=== PATIENT | female | born 1985 | race African-American/Black ===

== ENCOUNTER 2023-05-04 22:44 | Inpatient (IN) | payer OTHER, BC, SELFPAY ==
--- NOTE | ~2023-05-04 | XR_ITS ---
Clinical Indication: Fever PA and lateral views of the chest: Comparison: None Findings: The lungs are clear, without evidence of focal consolidation or pleural effusion. Cardiome diastinal silhouette is within normal limits. Bones and soft tissues are unremarkable. Impression: Normal chest. Reviewed, dictated and finalized at location . HOUSE ATTENDANT Impression: Normal chest.
--- NOTE | ~2023-05-04 | CT_ITS ---
CT of the Abdomen and Pelvis: Indication: Sepsis Technique: 2.5 mm axial scans were obtained through the abdomen and pelvis following intravenous adm inistration of 100 cc of Omnipaque 350. Dose reduction technique was used on this scan by utilizing a utomated exposure control and iterative reconstruction technique. The dose-length product (DLP) was 3 48.05 mGy-cm. Findings: Scans through the lung bases are unremarkable. The liver, spleen, pancreas, and adrenal glands are within normal limits. Probable gallstones present . There is patchy decreased enhancement in the bilateral renal parenchyma, consistent with pyelonephr itis. No hydronephrosis. Left renal cyst present. No evidence of aortic aneurysm. No lymphadenopathy . No bowel obstruction or bowel wall thickening. There is no evidence to suggest acute appendicitis. Images through the pelvis were performed. Urinary bladder unremarkable. No adnexal mass seen. No asci nino. Impression: Bilateral pyelonephritis. Reviewed, dictated and finalized at [facility]. GRAPHER AGENT Impression: Bilateral pyelonephritis.
[2023-05-04 22:47] VITALS: BP 134/72; PULSE 127; RESP 15; TEMP 38.6; O2SAT 100
[2023-05-05] VITALS (14 sets, daily range): BP systolic 91–123; BP diastolic 53–74; PULSE 93–123; RESP 14–22; TEMP 36.4–39.4; O2SAT 97–100; BMI 29.6
[2023-05-05 03:32] LABS: Basophils Absolute Auto 0.1 K/mm3 (0.0-0.1); Basophils Percent Auto 0.3 % (0.2-1.2); Eosinophils Absolute Auto 0.1 K/mm3 (0-0.3); Eosinophils Percent Auto 0.2 % (0-4.4); Hematocrit 39.1 % (37.0-47.0); Hemoglobin 13.6 g/dL (12.0-15.0); Immature Granulocyte Absolute 0.35 K/mm3 (0.00-0.031); Immature Granulocyte Percent A 1.7 % (0-0.5); Lymphocytes Absolute Auto 1.13 K/mm3 (0.9-3.2); Lymphocytes Percent Auto 5.3 % (18.3-44.2); Mean Corpuscular HGB Conc 34.8 g/dl (32-36); Mean Corpuscular Hemoglobin 32.3 pg (26-34); Mean Corpuscular Volume 92.9 fl (80-100); Mean Platelet Volume 9.7 fl (7.4-10.4); Monocytes Percent Auto 14.3 % (2.6-8.5); Neutrophils Absolute Auto 16.5 K/mm3 (1.3-6.7); Neutrophils Percent Auto 78.2 % (45.5-73.1); Platelet Count Result 258 k/mm3 (150-375); Red Blood Count 4.21 M/mm3 (4.2-5.4); Red Cell Distribution Width 11.4 % (11.5-14.5); White Blood Count 21.1 K/mm3 (4.5-10.0)
[2023-05-05] MEDS: HYDROcodone/acetaminophen (*CRX) 5-325 MG TABLET 1 TAB PO ×3 (03:37→20:46)
[2023-05-05] MEDS: ONDANSETRON INJ 4 MG/2 ML VIAL IV PUSH ×3 (03:37→17:28)
--- NOTE | 2023-05-05 03:39 | ED.FEVER ---
HPI - Fever General Chief Complaint: Fever <Jayleen Gibson MD - Last Filed: 05/05/23 06:32> Stated Complaint: fever <Jayleen Gibson MD - Last Filed: 05/05/23 06:32> Time Seen by Provider: 05/05/23 03:12 <Jayleen Gibson MD - Last Filed: 05/05/23 06:32> History of Present Illness HPI Narrative: Patient presents to the emergency department with persistent fever. She has had dysuria for the past 2 days. Yesterday developed a fever was seen at urgent care and given Bactrim however she continues to feel sick. Also has bilateral abdominal pain and nausea. Chills and hot flashes <Jayleen Gibson MD - Last Filed: 05/05/23 06:32> Related Data Allergies/Adverse Reactions: Allergies Allergy/AdvReac Type Severity Reaction Status Date / Time No Known Allergies Allergy Verified 05/05/23 02:50 <Jayleen Gibson MD - Last Filed: 05/05/23 06:32> Review of Systems Review of Systems: Review of systems negative except what is documented in the HPI <Jayleen Gibson MD - Last Filed: 05/05/23 06:32> Exam Narrative: GENERAL: Well-appearing, well-nourished, and in no acute distress. HEAD: Normocephalic, atraumatic. EYES: PERRLA and EOMI. ENT: Nares clear, no rhinorrhea or epistaxis. Mucous membranes moist. NECK: Supple. CHEST: Clear to auscultation. No respiratory distress. HEART: tachycardia ABDOMEN: Soft, nontender, nondistended. EXTREMITIES: Normal range of motion. No edema. SKIN: Warm, dry, no rash. NEURO: No focal deficits. Alert and oriented x3. PSYCH: Normal mood and affect. <Jayleen Gibson MD - Last Filed: 05/05/23 06:32> Course Course Emergency Course: Patient with bilateral pyelonephritis. Patient has been accepted by the hospitalist service. She is aware of the diagnosis and treatment plan. Ceftriaxone started. <Lázrao Bolden MD - Last Filed: 05/05/23 08:44> Vital Signs Vital signs: Vital Signs Temperature 101.4 F H 05/04/23 22:47 Pulse Rate 127 H 05/04/23 22:47 Respiratory Rate 15 05/04/23 22:47 Blood Pressure 134/72 05/04/23 22:47 Pulse Oximetry 100 05/04/23 22:47 Oxygen Delivery Room Air 05/04/23 22:47 Temperature 101.4 F H 05/04/23 22:47 Pulse Rate 111 H 05/05/23 05:27 Respiratory Rate 18 05/05/23 05:27 Blood Pressure 91/57 L 05/05/23 05:27 Pulse Oximetry 99 05/05/23 05:27 Oxygen Delivery Room Air 05/04/23 22:47 <Jayleen Gibson MD - Last Filed: 05/05/23 06:32> Vital Signs Temperature 101.4 F H 05/04/23 22:47 Pulse Rate 127 H 05/04/23 22:47 Respiratory Rate 15 05/04/23 22:47 Blood Pressure 134/72 05/04/23 22:47 Pulse Oximetry 100 05/04/23 22:47 Oxygen Delivery Room Air 05/04/23 22:47 Temperature 101.4 F H 05/04/23 22:47 Pulse Rate 111 H 05/05/23 05:27 Respiratory Rate 18 05/05/23 05:27 Blood Pressure 91/57 L 05/05/23 05:27 Pulse Oximetry 99 05/05/23 05:27 Oxygen Delivery Room Air 05/04/23 22:47 <Lázaro Bolden MD - Last Filed: 05/05/23 08:44> MDM - Fever MDM Narrative Medical decision making narrative: Labs ordered. White blood cell count elevated. Lactate normal bilirubin also elevated as well as inflammatory markers. Patient's blood pressure is 91/57 she is still tachycardic. Patient is septic. CT scan result pending. Will plan to admit to the hospital with blood cultures pending and IV antibiotics <Jayleen Gibson MD - Last Filed: 05/05/23 06:32> Lab Data Result diagrams: 05/05/23 03:14 05/05/23 03:14 <Jayleen Gibson MD - Last Filed: 05/05/23 06:32> Labs: Lab Results 05/05/23 Range/Units 03:14 WBC 21.1 H (4.5-10.0) K/mm3 RBC 4.21 (4.2-5.4) M/mm3 Hgb 13.6 (12.0-15.0) g/dL Hct 39.1 (37.0-47.0) % MCV 92.9 (80-100) fl MCH 32.3 (26-34) pg MCHC 34.8 (32-36) g/dl RDW 11.4 L (11.5-14.5) % Plt Count 258 (150-375) k/
[2023-05-05 03:47] LABS: Lactic Acid Reflex 1.7 mmol/L (0.7-2.0)
[2023-05-05 04:05] LABS: Alanine Aminotransferase 26 U/L (6-35); Albumin Level 4.4 g/dL (3.5-5.1); Alkaline Phosphatase 114 U/L (38-126); Anion Gap 13 mmol/L (8-16); Aspartate Amino Transferase 32 U/L (14-36); Bilirubin,Total 1.9 mg/dL (0.2-1.3); Blood Urea Nitrogen 13 mg/dL (7-17); CRP 21.3 mg/dL (<1.0); Calcium 9.1 mg/dL (8.4-10.2); Carbon Dioxide 24 mmol/L (22-30); Chloride 98 mmol/L (98-107); Estimated Glomerular Filt Rate > 60; Glucose 112 mg/dL (65-110); Potassium 3.5 mmol/L (3.4-5.0); Sodium 135 mmol/L (137-145)
[2023-05-05 04:07] LABS: Appearance Urine Turbid (Clear); Bacteria Urine 4+ /hpf; Bilirubin Urine Negative (Negative); Blood Urine 3+ (Negative); Color Urine Dark Yellow (Yellow); Glucose Urine UA Negative (Negative); Ketones Urine 2+ mg/dL (Negative); Leukocyte Esterase Ur 3+ LEU/UL (Negative); Need Manual Microscopic Reviewed; Nitrate Urine Positive (Negative); Protein Urine 2+ mg/dL (Negative); RBC Urine 21-50 /hpf (0-2); Specific Grav Ur 1.013 (1.001-1.035); Squamous Epithelial Cell Urine Moderate /hpf (Few); WBC Urine >100 /hpf; pH Urine 6.5 (5.0-9.0)
[2023-05-05 04:09] LABS: Add Urine Microscopic? YES
[2023-05-05] MEDS: MORPHINE SULFATE (*CRX) 2 MG/ML INJ IV PUSH (04:29)
--- NOTE | 2023-05-05 07:45 | PC.NURSE ---
Pt IV infiltrated in CT. attempted IV access x2 with no success.
[2023-05-05] MEDS: SODIUM CHLORIDE 0.9% IV 1,000 ML 125 ML IV CONT ×2 (08:55→17:29)
[2023-05-05] MEDS: ACETAMINOPHEN 325 MG TABLET 650 MG PO (09:10)
--- NOTE | 2023-05-05 09:47 | ADMGEN ---
This patient, Rosina Aguirre, was admitted to Medical Room 252-01. Patient/family oriented to hospital policies and general routines including ID bracelet, bed and alarms, visiting hours, pain management, procedures, bathroom and other care routines, personal items, smoking policy, room service/diet, and visiting hours. Information on how to activate the Rapid Response Team has been discussed. Patient/Family are encouraged to report perceived risks to care and to ask questions if they do not understand what they are told or what they should do.
[2023-05-05] MEDS: HYDROmorphone HCL INJ (*CRX) 1 MG/ML SYR IV PUSH (09:55)
--- NOTE | 2023-05-05 17:24 | PM.IMHP ---
H&P: HPI History of Present Illness Date/Time: 05/05/23 17:24 Chief Complaint: N/V, Fever, Dysuria Narrative: 37 y/o F presents here with fever, N/V, and dysuria with no PMH. Patient reports that she developed symptoms last Wednesday or Wednesday. Initially had dysuria accompanied by discoloration of urine described as orange. On Wednesday she reports increasing urinary frequency and when she would urinate, it was of small volume. Reports that her urine became further discolored on Wednesday, described urine as tea colored. Currently experiencing mid abdominal pain, midline and bilateral, that worsens with deep inspiration. She describes the abdominal pain as full and pinching. +Fever, nausea, vomiting, chills, and body aches. Denies diarrhea, hematuria, or odor. Current fever of 103F. Review of Systems Review of Systems: All systems reviewed & are unremarkable except as noted in HPI and below PMFSH Surgical History Surgical History History of x2: '05 and 06 Social History Social History (Updated 05/06/23 @ 01:46 by Mary Castro APRN) Social History: Currently lives alone. Her 2 children live with her father. Surrogate decision maker: Rachel Nobles, mother. Code status: Full code. Smoking status: Never smoker Alcohol intake: never Substance use: never Lack of Transportation: No Lack of Food: Never True Current Housing: I Have Housing Concerned About Future Housing: No Difficulty Paying Gas/Electric Bills: No Difficulty Paying for Meds: No Currently Unemployed: No Education: High School Diploma/GED Difficulty w/ Childcare or Family Care: No Spiritual care concerns: No Meds Home Medications and Allergies Allergies Allergy/AdvReac Type Severity Reaction Status Date / Time No Known Allergies Allergy Verified 05/05/23 02:50 Vital Signs Vital Signs - 24 hr 05/04/23 22:47 05/05/23 02:48 05/05/23 03:38 Temperature 101.4 F H Pulse Rate 127 H 110 H 119 H Respiratory Rate 15 18 18 Blood Pressure 134/72 110/74 99/61 L Pulse Oximetry 100 100 100 Oxygen Delivery Room Air 05/05/23 05:27 05/05/23 09:04 05/05/23 10:03 Temperature 100.5 F H 101.1 F H Pulse Rate 111 H 116 H 123 H Respiratory Rate 18 20 16 Blood Pressure 91/57 L 108/63 106/53 L Pulse Oximetry 99 98 100 Oxygen Delivery 05/05/23 10:33 05/05/23 09:50 05/05/23 13:59 Temperature 101.1 F H 97.6 F Pulse Rate 123 H 98 Respiratory Rate 16 14 Blood Pressure 106/53 L 123/68 Pulse Oximetry 100 99 Oxygen Delivery Room Air 05/05/23 14:00 05/05/23 12:00 Temperature 97.6 F Pulse Rate 98 101 H Respiratory Rate 14 Blood Pressure 123/68 Pulse Oximetry 99 Oxygen Delivery Exam Narrative: Resting in hospital bed, no visitors at bedside. Const: General: no acute distress and uncomfortable Other: Ill-appearing. HENMT: Face/Nose/Sinus: Normal nares present Mouth: Yes dry mucous membranes Eyes: General: appearance normal, both eyes and all related structures Sclera: sclerae normal Pupils: Equal, round and reactive pupils present Resp: Effort & Inspection: normal respiratory effort Auscultation: clear to auscultation bilaterally Cardio: Rate: tachycardic Rhythm: regular rhythm Other: S1-S2 present without murmur, rub, ectopy GI: GI Palp: Yes Soft to palpation Auscultation: normal bowel sounds Other: +Diffuse tenderness. : Other: no suprapubic tenderness or CVA tenderness. output tea colored. Skin: General skin exam: normal color and no rashes or lesions noted Wounds: no wounds Neuro: Speech: normal speech Motor exam (neuro): 5/5 motor strength present throughout Sensory Exam: normal sensation Other: A/Ox4 Extrem: General: normal to inspection Psych: Mental Status: mental status grossly normal Affect: normal affect Other: Go
[2023-05-05] MEDS: ACETAMINOPHEN 500 MG TABLET 1000 MG PO (18:01)
[2023-05-06] VITALS (17 sets, daily range): BP systolic 102–129; BP diastolic 62–79; PULSE 80–101; RESP 16–20; TEMP 36.8–37.9; O2SAT 99–100
[2023-05-06] MEDS: ACETAMINOPHEN 500 MG TABLET 1000 MG PO ×2 (00:59→08:44)
[2023-05-06] MEDS: SODIUM CHLORIDE 0.9% IV 1,000 ML 125 ML IV CONT ×3 (03:34→19:51)
[2023-05-06] MEDS: ALPRAZolam (*CRX) 0.25 MG TABLET PO (03:34)
[2023-05-06 05:56] LABS: Basophils Percent Auto 0.3 % (0.2-1.2); Eosinophils Percent Auto 0.2 % (0-4.4); Hematocrit 33.2 % (37.0-47.0); Hemoglobin 11.2 g/dL (12.0-15.0); Immature Granulocyte Absolute 0.14 K/mm3 (0.00-0.031); Immature Granulocyte Percent A 1.1 % (0-0.5); Lymphocytes Absolute Auto 0.99 K/mm3 (0.9-3.2); Lymphocytes Percent Auto 7.6 % (18.3-44.2); Mean Corpuscular HGB Conc 33.7 g/dl (32-36); Mean Corpuscular Volume 94.9 fl (80-100); Mean Platelet Volume 9.8 fl (7.4-10.4); Monocytes Absolute Auto 1.7 K/mm3 (0.1-0.6); Monocytes Percent Auto 13.1 % (2.6-8.5); Neutrophils Absolute Auto 10.1 K/mm3 (1.3-6.7); Neutrophils Percent Auto 77.7 % (45.5-73.1); Platelet Count Result 216 k/mm3 (150-375); Red Cell Distribution Width 11.5 % (11.5-14.5)
[2023-05-06 06:15] LABS: Anion Gap 8 mmol/L (8-16); Blood Urea Nitrogen 6 mg/dL (7-17); Calcium 8.2 mg/dL (8.4-10.2); Carbon Dioxide 23 mmol/L (22-30); Chloride 106 mmol/L (98-107); Estimated Glomerular Filt Rate > 60; Glucose 119 mg/dL (65-110); Potassium 3.2 mmol/L (3.4-5.0); Sodium 137 mmol/L (137-145)
[2023-05-06] MEDS: ONDANSETRON INJ 4 MG/2 ML VIAL IV PUSH ×3 (08:47→23:47)
[2023-05-06] MEDS: HYDROmorphone HCL INJ (*CRX) 1 MG/ML SYR IV PUSH (08:48)
--- NOTE | 2023-05-06 09:06 | ECG_ITS ---
Measurements Intervals [place] Rate: 102 P: 53 VT: 139 QRS: 23 QRSD: 89 T: 14 QT: 333 QTc: 435 Interpretive Statements SINUS TACHYCARDIA BORDERLINE T WAVE ABNORMALITY- INFERIOR LEADS BORDERLINE ECG NO PREVIOUS ECG AVAILABLE FOR COMPARISON Electronically Signed On 05-06-2023 9:50:29 [employer] by Luís Hewitt D.O.
--- NOTE | 2023-05-06 09:09 | PM.IMPN ---
Progress Note: A&P Assessment and Plan (1) Sepsis: Qualifiers: Sepsis acute organ dysfunction status: with acute organ dysfunction Sepsis type: sepsis due to unspecified organism Severe sepsis acute organ dysfunction type: unspecified Severe sepsis shock status: without septic shock Qualified Code(s): A41.9 - Sepsis, unspecified organism; R65.20 - Severe sepsis without septic shock Code(s): A41.9 - Sepsis, unspecified organism Status: Acute (2) Pyelonephritis: Code(s): N12 - Tubulo-interstitial nephritis, not specified as acute or chronic Status: Acute Plan 37F w/ no PMH presents with n/v, abdominal pain and dysuria. Admitted for b/l pyelonephritis on 05/06 1) b/l pyelonephritis w/ sepsis w/o shock - presented with fever of 101.4, lower now. received sepsis fluid bolus. - wbc 21 --> 17. ctm - cont tele, IVF - f/u urine and blood cultures - cont ceftriaxone started 05/05 2) chest pain - reported anxiety overnight relieved with benzo - sharp in nature. CXR unremarkable. check stat troponin and EKG, will follow FEN: IVF GI prophylaxis: not indicated DVT prophylaxis: SCD's. consider heparin tomorrow if not much better Lines: pIV Code Status: Full Code Dispo: stable. More than 35 minutes spent on chart review, patient interaction and assessment and plan. Subjective Date/time seen: 05/06/23 09:09 Interval history: pt reports she complains of sharp chest pain which subsided overnight but it is back, severe, midsternal, and worse when she breaths in, and causes her to vomit. nursing reports she was anxious, and a one time dose of benzo greatly relieved it. the patient otherwise complains of feeling feverish. reports lower abdominal pain. no issues breathing Review of Systems Review of Systems: All systems reviewed & are unremarkable except as noted in HPI and below Exam Const: General: comfortable and no acute distress Eyes: Pupils: Equal, round and reactive pupils present Neck: Neck: supple Resp: Effort & Inspection: normal respiratory effort Auscultation: clear to auscultation bilaterally and no crackles Cardio: Rate: regular rate Rhythm: regular rhythm Heart sounds: no gallops, no murmurs and no rubs GI: Inspection: non-distended GI Palp: Yes Soft to palpation and Yes Tenderness to palpation present (GI) Auscultation: normal bowel sounds Other: no CVA tenderness Extrem: General: no edema Objective Data Vital Signs Vital Signs: Vital Signs - 24 hr 05/05/23 10:03 05/05/23 10:33 05/05/23 09:50 Temperature 101.1 F H 101.1 F H Pulse Rate 123 H 123 H Respiratory Rate 16 16 Blood Pressure 106/53 L 106/53 L Pulse Oximetry 100 100 Oxygen Delivery Room Air 05/05/23 13:59 05/05/23 14:00 05/05/23 12:00 Temperature 97.6 F 97.6 F Pulse Rate 98 98 101 H Respiratory Rate 14 14 Blood Pressure 123/68 123/68 Pulse Oximetry 99 99 Oxygen Delivery 05/05/23 17:30 05/05/23 16:00 05/05/23 19:44 Temperature 102.9 F H Pulse Rate 102 H Respiratory Rate 22 H Blood Pressure 118/74 Pulse Oximetry 100 Oxygen Delivery Room Air 05/05/23 20:34 05/05/23 19:01 05/06/23 00:29 Temperature 98.8 F 98.7 F 99.0 F Pulse Rate 93 Respiratory Rate 16 Blood Pressure 105/64 Pulse Oximetry 97 Oxygen Delivery 05/06/23 00:59 05/06/23 02:00 05/06/23 04:21 Temperature 99.0 F 100.1 F H 98.6 F Pulse Rate 100 100 Respiratory Rate 16 16 Blood Pressure 105/62 102/62 Pulse Oximetry 99 100 Oxygen Delivery 05/05/23 20:00 05/06/23 00:00 05/06/23 04:00 Temperature Pulse Rate 108 H 84 101 H Respiratory Rate Blood Pressure Pulse Oximetry Oxygen Delivery 05/06/23 08:42 Temperature 99.4 F Pulse Rate Respiratory Rate Blood Pressure Pulse Oximetry Oxygen Delivery Intake/Output Intake/Output: Intake & Output 05/03/23 05/04/23 05/05/23 05/06/23 23:59 23:59 23:59 23:59 Intake Total 2500 14
[2023-05-06 09:41] LABS: Troponin I < 0.012 ng/mL (0.000-0.034)
[2023-05-06] MEDS: KCL 20 MEQ/SW 100 ML 100 ML 50 MEQ IVPB (09:47)
[2023-05-06] MEDS: ACETAMINOPHEN 325 MG TABLET 650 MG PO (17:26)
[2023-05-06] MEDS: traZODone HCL 50 MG TABLET PO (22:56)
[2023-05-07] VITALS (14 sets, daily range): BP systolic 115–146; BP diastolic 64–81; PULSE 66–97; RESP 16–18; TEMP 36.8–38.6; O2SAT 98–100
[2023-05-07] MEDS: ONDANSETRON INJ 4 MG/2 ML VIAL IV PUSH (03:47)
[2023-05-07] MEDS: ACETAMINOPHEN 325 MG TABLET 650 MG PO ×2 (03:47→17:32)
[2023-05-07] MEDS: SODIUM CHLORIDE 0.9% IV 1,000 ML 125 ML IV CONT ×2 (03:47→17:31)
[2023-05-07 06:29] LABS: Basophils Percent Auto 0.4 % (0.2-1.2); Eosinophils Percent Auto 0.4 % (0-4.4); Hematocrit 33.8 % (37.0-47.0); Hemoglobin 11.3 g/dL (12.0-15.0); Lymphocytes Absolute Auto 1.68 K/mm3 (0.9-3.2); Lymphocytes Percent Auto 16.9 % (18.3-44.2); Mean Corpuscular HGB Conc 33.4 g/dl (32-36); Mean Corpuscular Hemoglobin 31.6 pg (26-34); Mean Corpuscular Volume 94.4 fl (80-100); Mean Platelet Volume 9.7 fl (7.4-10.4); Monocytes Absolute Auto 1.7 K/mm3 (0.1-0.6); Monocytes Percent Auto 16.8 % (2.6-8.5); Neutrophils Absolute Auto 6.4 K/mm3 (1.3-6.7); Neutrophils Percent Auto 64.5 % (45.5-73.1); Platelet Count Result 239 k/mm3 (150-375); Red Blood Count 3.58 M/mm3 (4.2-5.4); Red Cell Distribution Width 11.7 % (11.5-14.5); White Blood Count 9.9 K/mm3 (4.5-10.0)
[2023-05-07 06:38] LABS: Anion Gap 11 mmol/L (8-16); Blood Urea Nitrogen 5 mg/dL (7-17); Calcium 8.4 mg/dL (8.4-10.2); Carbon Dioxide 20 mmol/L (22-30); Chloride 110 mmol/L (98-107); Estimated Glomerular Filt Rate > 60; Glucose 97 mg/dL (65-110); Magnesium 2.2 mg/dL (1.6-2.3); Potassium 3.4 mmol/L (3.4-5.0); Sodium 141 mmol/L (137-145)
--- NOTE | 2023-05-07 06:50 | PC.NURSE ---
Patient states she thinks the IV zofran is making her feel sick. Attempted to reach Dr. Hernandes for new order for nausea medication with no success.
[2023-05-07 06:56] LABS: Procalcitonin 3.4 ng/mL
[2023-05-07] MEDS: cefTRIAXone 2 GM/NS 100 ML 2 GM/100 ML BAG IVPB (09:22)
[2023-05-07] MEDS: HYDROcodone/acetaminophen (*CRX) 5-325 MG TABLET 1 TAB PO (09:35)
--- NOTE | 2023-05-07 11:23 | PM.IMPN ---
Progress Note: A&P Assessment and Plan (1) Sepsis: Qualifiers: Sepsis acute organ dysfunction status: with acute organ dysfunction Sepsis type: sepsis due to unspecified organism Severe sepsis acute organ dysfunction type: unspecified Severe sepsis shock status: without septic shock Qualified Code(s): A41.9 - Sepsis, unspecified organism; R65.20 - Severe sepsis without septic shock Code(s): A41.9 - Sepsis, unspecified organism Status: Acute (2) Pyelonephritis: Code(s): N12 - Tubulo-interstitial nephritis, not specified as acute or chronic Status: Acute Plan 37F w/ no PMH presents with n/v, abdominal pain and dysuria. Admitted for b/l pyelonephritis on 05/06 1) b/l pyelonephritis w/ sepsis w/o shock - presented with fever of 101.4, persistent. received sepsis fluid bolus. - wbc 21 --> 17 --> 9, however procal is 3.4 on 05/07 - cont tele, IVF, and ceftriaxone started on 05/05. zofran switched to reglan - f/u urine and blood cultures 2) chest pain - reported anxiety overnight relieved with benzo - sharp in nature. CXR unremarkable. check stat troponin and EKG, no ACS - resolved. FEN: IVF GI prophylaxis: not indicated DVT prophylaxis: SCD's. lovenox Lines: pIV Code Status: Full Code Dispo: stable. More than 25 minutes spent on chart review, patient interaction and assessment and plan. Subjective Date/time seen: 05/07/23 11:23 Interval history: NAOE. pt reports lower right abdominal pain still present, along with nausea and vomiting x1, still feels weak as well. nothing new to report although Review of Systems Review of Systems: All systems reviewed & are unremarkable except as noted in HPI and below Exam Const: General: comfortable and no acute distress Eyes: Pupils: Equal, round and reactive pupils present Neck: Neck: supple Resp: Effort & Inspection: normal respiratory effort Auscultation: clear to auscultation bilaterally Cardio: Rate: regular rate Rhythm: regular rhythm Heart sounds: no gallops, no murmurs and no rubs GI: GI Palp: Yes Soft to palpation and Yes Tenderness to palpation present (GI) (right lower quadrant to deep palpation. no CVA tenderness b/l) Auscultation: normal bowel sounds Extrem: General: no edema Objective Data Vital Signs Vital Signs: Vital Signs - 24 hr 05/06/23 14:11 05/06/23 12:00 05/06/23 16:00 Temperature 98.3 F Pulse Rate 81 94 83 Respiratory Rate 16 Blood Pressure 121/79 Pulse Oximetry 99 Oxygen Delivery 05/06/23 17:18 05/06/23 17:26 05/06/23 20:00 Temperature 99.5 F 99.5 F Pulse Rate 96 85 Respiratory Rate 16 Blood Pressure 129/76 Pulse Oximetry 99 Oxygen Delivery 05/06/23 21:32 05/06/23 23:47 05/07/23 00:00 Temperature 98.3 F 98.5 F Pulse Rate 90 80 82 Respiratory Rate 16 20 Blood Pressure 123/75 112/62 Pulse Oximetry 100 100 Oxygen Delivery 05/07/23 03:47 05/07/23 03:49 05/07/23 04:00 Temperature 101.4 F H 101.4 F H Pulse Rate 97 92 Respiratory Rate 16 Blood Pressure 115/66 Pulse Oximetry 98 Oxygen Delivery 05/07/23 04:47 05/07/23 08:30 05/07/23 09:20 Temperature 99.8 F H 98.5 F Pulse Rate 91 Respiratory Rate 18 Blood Pressure 129/81 Pulse Oximetry 100 Oxygen Delivery Room Air 05/07/23 08:00 Temperature Pulse Rate 82 Respiratory Rate Blood Pressure Pulse Oximetry Oxygen Delivery Intake/Output Intake/Output: Intake & Output 05/04/23 05/05/23 05/06/23 05/07/23 23:59 23:59 23:59 23:59 Intake Total 2500 4480 2050 Output Total 900 1200 Balance 1600 3280 2050 Meds/Results Medications: Active Medications Generic Name Dose Route Start Last Admin Trade Name Freq PRN Reason Stop Dose Admin Acetaminophen 650 mg 05/06/23 17:21 05/07/23 03:47 Acetaminophen 325 Mg Tablet PO 650 mg Q6H PRN Administration Mild Pain (1-3) or Fever Hydrocodone Bitart/Acetaminophen 1 tab 05/05/23 08:42 11
[2023-05-07] MEDS: ENOXAPARIN 40 MG/0.4 ML SYRINGE SUB-Q (12:07)
[2023-05-07] MEDS: METOCLOPRAMIDE HCL INJ 10 MG/2 ML VIAL IV PUSH (20:21)
[2023-05-07] MEDS: traZODone HCL 50 MG TABLET PO (22:26)
[2023-05-08] VITALS (10 sets, daily range): BP systolic 120–142; BP diastolic 63–79; PULSE 57–77; RESP 18; TEMP 36.8–37.6; O2SAT 97–100
[2023-05-08] MEDS: SODIUM CHLORIDE 0.9% IV 1,000 ML 125 ML IV CONT ×2 (01:49→08:38)
[2023-05-08] MEDS: ACETAMINOPHEN 325 MG TABLET 650 MG PO (03:56)
[2023-05-08 06:05] LABS: Basophils Percent Auto 0.4 % (0.2-1.2); Eosinophils Absolute Auto 0.2 K/mm3 (0-0.3); Eosinophils Percent Auto 1.7 % (0-4.4); Hematocrit 31.3 % (37.0-47.0); Hemoglobin 10.5 g/dL (12.0-15.0); Immature Granulocyte Absolute 0.17 K/mm3 (0.00-0.031); Immature Granulocyte Percent A 1.8 % (0-0.5); Lymphocytes Absolute Auto 2.11 K/mm3 (0.9-3.2); Lymphocytes Percent Auto 22.3 % (18.3-44.2); Mean Corpuscular HGB Conc 33.5 g/dl (32-36); Mean Corpuscular Hemoglobin 31.4 pg (26-34); Mean Corpuscular Volume 93.7 fl (80-100); Mean Platelet Volume 9.6 fl (7.4-10.4); Monocytes Absolute Auto 1.4 K/mm3 (0.1-0.6); Monocytes Percent Auto 15.2 % (2.6-8.5); Neutrophils Absolute Auto 5.6 K/mm3 (1.3-6.7); Neutrophils Percent Auto 58.6 % (45.5-73.1); Platelet Count Result 247 k/mm3 (150-375); Red Blood Count 3.34 M/mm3 (4.2-5.4); Red Cell Distribution Width 11.9 % (11.5-14.5); White Blood Count 9.5 K/mm3 (4.5-10.0)
[2023-05-08 06:23] LABS: Anion Gap 8 mmol/L (8-16); Blood Urea Nitrogen 2 mg/dL (7-17); Carbon Dioxide 21 mmol/L (22-30); Chloride 111 mmol/L (98-107); Estimated Glomerular Filt Rate > 60; Glucose 108 mg/dL (65-110); Potassium 3.2 mmol/L (3.4-5.0); Sodium 140 mmol/L (137-145)
[2023-05-08 06:34] LABS: Procalcitonin 1.6 ng/mL
[2023-05-08] MEDS: cefTRIAXone 2 GM/NS 100 ML 2 GM/100 ML BAG IVPB (08:37)
[2023-05-08] MEDS: POTASSIUM CHLORIDE 20 MEQ ER TABLET PO (08:37)
[2023-05-08] MEDS: ENOXAPARIN 40 MG/0.4 ML SYRINGE SUB-Q (08:38)
[2023-05-08] MEDS: POTASSIUM CHLORIDE INJ 40 MEQ in SODIUM CHLORIDE 0.9% IV 500 ML 130 MEQ IVPB (08:42)
--- NOTE | 2023-05-08 09:04 | ECG_ITS ---
Measurements Intervals [place] Rate: 52 P: 64 MD: 138 QRS: 24 QRSD: 89 T: 17 QT: 458 QTc: 428 Interpretive Statements SINUS BRADYCARDIA BORDERLINE T WAVE ABNORMALITY- ANT/INF LEADS BORDERLINE ECG COMPARED TO ECG 05/06/2023 09:41:07 SINUS BRADYCARDIA NOW PRESENT Electronically Signed On 05-08-2023 16:19:46 [employer] by Luís Hewitt D.O.
--- NOTE | 2023-05-08 10:51 | PM.IMPN ---
Progress Note: A&P Assessment and Plan (1) Sepsis: Qualifiers: Sepsis acute organ dysfunction status: with acute organ dysfunction Sepsis type: sepsis due to unspecified organism Severe sepsis acute organ dysfunction type: unspecified Severe sepsis shock status: without septic shock Qualified Code(s): A41.9 - Sepsis, unspecified organism; R65.20 - Severe sepsis without septic shock Code(s): A41.9 - Sepsis, unspecified organism Status: Acute (2) Pyelonephritis: Code(s): N12 - Tubulo-interstitial nephritis, not specified as acute or chronic Status: Acute (3) Bright red blood per rectum: Code(s): K62.5 - Hemorrhage of anus and rectum Status: Acute Plan 37F w/ no PMH presents with n/v, abdominal pain and dysuria. Admitted for b/l pyelonephritis on 05/06 1) b/l pyelonephritis w/ sepsis w/o shock - resolved. defeverscense on 05/08. WBC normal. - change ceftraixone to augmentin for ecoli for 7 day total abx course. discontinue IVF - blood cultures positive one bottle 04/25 for e coli, but repeat so far negative. ctm. 2) sinus bradycardia - f/u holter as outpatient, f/u cardiology 3) bright red blood per rectum on 05/08 - one episode, has never had history of this. - HB since admission 13.6 to 10.5 but that was likely dilutional. rectal exam unremarkable. however, she requests workup for this. has never had colonoscopy. - check iron and ferritin panel. - consult GI. trend HB. cont tele. 4) chest pain - reported anxiety 05/06 overnight relieved with benzo - sharp in nature. CXR, trop and EKG unremarkable. - resolved. hypokalemia replace and recheck FEN: regular diet. saline lock IV GI prophylaxis: not indicated DVT prophylaxis: SCD's. lovenox Lines: pIV Code Status: Full Code Dispo: stable. More than 35 minutes spent on chart review, patient interaction and assessment and plan. Subjective Date/time seen: 05/08/23 10:51 Interval history: NAOE. patient feels much better, not feverish. no pain. she has tolerated diet. and she mentions she had BM with blood in the stool. first time. Review of Systems Review of Systems: All systems reviewed & are unremarkable except as noted in HPI and below Exam Const: General: comfortable and no acute distress Eyes: Pupils: Equal, round and reactive pupils present Neck: Neck: supple Resp: Effort & Inspection: normal respiratory effort Auscultation: clear to auscultation bilaterally, no crackles, no rales and no rhonchi Cardio: Rate: bradycardic Rhythm: regular rhythm Heart sounds: no gallops, no murmurs and no rubs GI: Inspection: non-distended GI Palp: Yes Soft to palpation and No Tenderness to palpation present (GI) Auscultation: normal bowel sounds Other: rectal exam good external sphincter tone. brown stool in vault. no hemorrhoids or lesions. nurse Wendi present in room during exam Extrem: General: no edema Objective Data Vital Signs Vital Signs: Vital Signs - 24 hr 05/07/23 13:39 05/07/23 12:00 05/07/23 16:00 Temperature 98.8 F Pulse Rate 80 71 75 Respiratory Rate 18 Blood Pressure 130/77 Pulse Oximetry 100 Oxygen Delivery 05/07/23 17:22 05/07/23 19:30 05/07/23 20:00 Temperature 98.8 F 98.6 F Pulse Rate 81 70 68 Respiratory Rate 18 18 Blood Pressure 116/64 120/74 Pulse Oximetry 100 100 Oxygen Delivery 05/07/23 23:40 05/08/23 00:00 05/08/23 03:52 Temperature 98.2 F 99.1 F Pulse Rate 66 59 L 72 Respiratory Rate 18 18 Blood Pressure 146/78 H 125/78 Pulse Oximetry 100 97 Oxygen Delivery 05/08/23 04:00 05/08/23 08:55 05/08/23 08:55 Temperature Pulse Rate 66 61 Respiratory Rate Blood Pressure Pulse Oximetry Oxygen Delivery Room Air 05/08/23 10:16 Temperature 98.3 F Pulse Rate 60 Respiratory Rate 18 Blood Pressure 120/63 Pulse Oximetry 100 Oxygen Delivery Intake/Output Intake/Output: Intake & Output 05/05/23 05/06/23
[2023-05-08 15:27] LABS: Anion Gap 10 mmol/L (8-16); Calcium 8.4 mg/dL (8.4-10.2); Carbon Dioxide 19 mmol/L (22-30); Chloride 113 mmol/L (98-107); Estimated Glomerular Filt Rate > 60; Glucose 99 mg/dL (65-110); Potassium 3.8 mmol/L (3.4-5.0); Sodium 142 mmol/L (137-145)
[2023-05-08 15:54] LABS: Blood Urea Nitrogen < 2 mg/dL (7-17)
[2023-05-08] MEDS: traZODone HCL 50 MG TABLET PO (20:46)
[2023-05-09] VITALS: BP 137/76; PULSE 61; PULSE 63; RESP 18; TEMP 37.4; O2SAT 100
[2023-05-09] MEDS: ALPRAZolam (*CRX) 0.25 MG TABLET PO (01:47)
[2023-05-09 04:00] VITALS: BP 125/78; PULSE 71; PULSE 72; RESP 18; TEMP 37.2; O2SAT 100
[2023-05-09 06:14] LABS: Hematocrit 31.1 % (37.0-47.0); Hemoglobin 10.4 g/dL (12.0-15.0); Mean Corpuscular HGB Conc 33.4 g/dl (32-36); Mean Corpuscular Hemoglobin 31.5 pg (26-34); Mean Corpuscular Volume 94.2 fl (80-100); Platelet Count Result 272 k/mm3 (150-375); Red Cell Distribution Width 11.9 % (11.5-14.5); White Blood Count 9.8 K/mm3 (4.5-10.0)
[2023-05-09 06:17] LABS: Anion Gap 8 mmol/L (8-16); Calcium 8.3 mg/dL (8.4-10.2); Carbon Dioxide 23 mmol/L (22-30); Chloride 109 mmol/L (98-107); Estimated Glomerular Filt Rate > 60; Glucose 119 mg/dL (65-110); Magnesium 2.1 mg/dL (1.6-2.3); Potassium 3.3 mmol/L (3.4-5.0); Sodium 140 mmol/L (137-145)
[2023-05-09 06:23] LABS: Iron 56 ug/dL (37-170)
[2023-05-09 06:32] LABS: Blood Urea Nitrogen < 2 mg/dL (7-17)
[2023-05-09 08:00] VITALS: BP 136/85; PULSE 56; PULSE 66; RESP 14; TEMP 36.6; O2SAT 100; O2SAT 93
--- NOTE | 2023-05-09 09:22 | WPDGICN ---
Assessment and Plan Assessment and plan (1) Bright red blood per rectum: Code(s): K62.5 - Hemorrhage of anus and rectum Status: Acute Assessment and Plan: Patient reports 2 small spots of blood noticed in the toilet bowl after a bowel movement. This is occurred only over the last several days. Patient currently recovering from bilateral pyelonephritis. I suspect this may be from hemorrhoids. But other lesions cannot be excluded. Would recommend stool softeners be started. Outpatient colonoscopy can be arranged to evaluate more thoroughly. (2) Pyelonephritis: Code(s): N12 - Tubulo-interstitial nephritis, not specified as acute or chronic Status: Acute Assessment and Plan: Treatment for pyelonephritis in progress. Would recommend colonoscopy after this is completed this can be performed as an outpatient. GI Consult Note Consult date/time: 05/09/23 09:22 Reason for consult: Bright red blood per rectum HPI: Rosina Aguirre is a 37 year old female I am asked to see at the request of the hospitalist because of bright red blood per rectum. Patient admitted the hospital with pyelonephritis. She initially had significant leukocytosis. Patient has been admitted and receiving IV antibiotics. Her white count has decreased. Still she states her fever has broken. She states yesterday she noticed a small blood clot in the toilet bowl after a bowel movement. She states she noticed this on 2 occasions since admission hospital. In general her bowel movements have been somewhat irregular. She has some abdominal cramping before bowel movement. She has never had blood in her stools before. As stated she had 2 small spots noted on 2 occasions since admission. Currently recovering from recent bilateral pyelonephritis. She has begun to have increase her oral intake at present. Family history is noncontributory. Review of Systems Review of Systems: Review of systems noncontributory. [facility] Surgical History Surgical History History of x2: '05 and 06 Social History Social History (Updated 05/06/23 @ 01:46 by Mary Castro APRN) Social History: Currently lives alone. Her 2 children live with her father. Surrogate decision maker: Rachel Nobles, mother. Code status: Full code. Smoking status: Never smoker Alcohol intake: never Substance use: never Lack of Transportation: No Lack of Food: Never True Current Housing: I Have Housing Concerned About Future Housing: No Difficulty Paying Gas/Electric Bills: No Difficulty Paying for Meds: No Currently Unemployed: No Education: High School Diploma/GED Difficulty w/ Childcare or Family Care: No Spiritual care concerns: No Meds Home Medications and Allergies Home Medications Medication Instructions Recorded Confirmed Type No Home Medications 05/06/23 05/06/23 History Allergies Allergy/AdvReac Type Severity Reaction Status Date / Time No Known Allergies Allergy Verified 05/05/23 02:50 Vital Signs Vital Signs - 24 hr 05/08/23 10:16 05/08/23 12:00 05/08/23 14:20 Temperature 98.3 F 98.4 F Pulse Rate 60 57 L 63 Respiratory Rate 18 18 Blood Pressure 120/63 142/77 H Pulse Oximetry 100 100 05/08/23 16:00 05/08/23 19:09 05/08/23 20:00 Temperature 98.5 F 99.7 F H Pulse Rate 61 77 64 Respiratory Rate 18 18 Blood Pressure 132/77 140/79 Pulse Oximetry 100 100 05/08/23 20:00 05/09/23 00:00 05/09/23 00:00 Temperature 99.4 F Pulse Rate 63 61 63 Respiratory Rate 18 Blood Pressure 137/76 Pulse Oximetry 100 05/09/23 04:00 05/09/23 04:00 Temperature 98.9 F Pulse Rate 72 71 Respiratory Rate 18 Blood Pressure 125/78 Pulse Oximetry 100 Exam Narrative: Physical exam reveals patient to be alert. Vital signs stable. HEENT exam is unremarkable. Patient is anicteric. Lungs a
[2023-05-09] MEDS: ENOXAPARIN 40 MG/0.4 ML SYRINGE SUB-Q (09:36)
[2023-05-09] MEDS: AMOXICILLIN/CLAVULANATE K 875-125 MG TAB 1 TABLET PO (09:36)
[2023-05-09] MEDS: PSYLLIUM SUGAR FREE POWDER PACKET 1 PACKET PO (09:45)
[2023-05-09 12:00] VITALS: BP 126/69; PULSE 65; PULSE 67; RESP 14; TEMP 36.8; O2SAT 100
[2023-05-09] MEDS: MORPHINE SULFATE (*CRX) 2 MG/ML INJ 1 MG IV PUSH (12:33)
[2023-05-09] MEDS: METOCLOPRAMIDE HCL INJ 10 MG/2 ML VIAL IV PUSH (12:35)
[2023-05-09 16:00] VITALS: BP 136/84; PULSE 69; PULSE 73; RESP 16; TEMP 37.2; O2SAT 100
--- NOTE | 2023-05-09 18:29 | PM.DS ---
DS: Admitting Diagnosis Discharge Date 05/09/23 Admitting Diagnosis abdominal pain DS: Discharge Diagnosis Discharge Diagnosis (1) Pyelonephritis: Code(s): N12 - Tubulo-interstitial nephritis, not specified as acute or chronic Status: Acute (2) Sepsis: Qualifiers: Sepsis acute organ dysfunction status: with acute organ dysfunction Sepsis type: sepsis due to unspecified organism Severe sepsis acute organ dysfunction type: unspecified Severe sepsis shock status: without septic shock Qualified Code(s): A41.9 - Sepsis, unspecified organism; R65.20 - Severe sepsis without septic shock Code(s): A41.9 - Sepsis, unspecified organism Status: Acute (3) Bright red blood per rectum: Code(s): K62.5 - Hemorrhage of anus and rectum Status: Acute DS: Summary Hospital Course Hospital Course: 37F w/ no PMH presents with n/v abdominal pain and dysuria. Found to have sepsis 2/2 pyelonephritis. received ceftriaxone. home with another 5 days of augmentin she will follow up with cardiology for a flutter follow up with PCP for episode of anemia, and brbpr which resolved spontaneously. Gi recommended outpatient colonoscopy Time Spent with Patient Time attestation: Total time spent providing and/or coordinating discharge services: Exam Const: General: cooperative and no acute distress Resp: Effort & Inspection: normal respiratory effort Auscultation: clear to auscultation bilaterally Cardio: Rate: regular rate Rhythm: regular rhythm Heart sounds: S1 normal heart sound present and S2 normal heart sound present GI: GI Palp: No abdominal tenderness Auscultation: normal bowel sounds DS: Data Data Completed and Pending Labs on day of discharge: Labs from last 24 hours 05/09/23 05:33 WBC 9.8 RBC 3.30 L Hgb 10.4 L Hct 31.1 L MCV 94.2 MCH 31.5 MCHC 33.4 RDW 11.9 Plt Count 272 MPV 10.0 Sodium 140 Potassium 3.3 L Chloride 109 H Carbon Dioxide 23 Anion Gap 8 BUN < 2 L Creatinine 0.60 L Estim Creat Clear Calc Not Reportable Estimated GFR > 60 Glucose 119 H Calcium 8.3 L Magnesium 2.1 Iron 56 Ferritin 268.00 H Preliminary micro results at discharge 05/07/23 11:53 Blood Culture - Preliminary Blood 05/07/23 11:58 Blood Culture - Preliminary Blood 05/05/23 09:00 Blood Culture - Preliminary Blood Escherichia Coli 05/05/23 07:40 Blood Culture - Preliminary Blood Discharge Plan Discharge Attending physician on discharge: Neelam Mgcraw Consulting providers: Lenin Villagomez Discharging Clinician: Neelam Mcgraw Patient Disposition: Home, Self-Care Activity: october shower Diet: regular Patient Instructions: Antibiotic Form Stand Alone Forms: General Discharge Information Follow-up/Referrals: Luís Hewitt DO [Physician] - 1 Week (transient episode of a flutter while inpatient) UNKNOWN,DOCTOR [Primary Care Provider] - 2 Weeks Discharge Medications: New amoxicillin-pot clavulanate 875-125 mg tablet 1 tablet PO Q12H 5 Days Qty: 10 0RF Date of admission: 05/06/23 09:25 Primary Care Provider: UNKNOWN,DOCTOR Admitting Provider: Neelam Mcgraw Attending physician on admission: Neelam Mcgraw Condition: Stable
== END 2023-05-09 19:45 | disposition home or self-care (01) | DRG 720 ==
LOC: ANHED 05-05 08:44 → ANH2MED 05-05 09:01
PROVIDERS: Student in an Organized Health Care Education/Training Program; Admitting Provider General Practice; Emergency Provider Emergency Medicine; Visit Provider General Practice
DX: A41.51 Sepsis due to Escherichia coli [E. coli] (principal); I48.92 Unspecified atrial flutter; N10 Acute pyelonephritis; E87.6 Hypokalemia; K62.5 Hemorrhage of anus and rectum; R07.9 Chest pain, unspecified; F41.9 Anxiety disorder, unspecified
CPT/HCPCS: 36415; 71046; 74177; 80048; 80053; 81001; 81025; 82728; 83540; 83605; 83735; 84145; 84484; 85025; 85027; 86140; 87040; 87077; 87086; 87186; 93005; 96374; 96375; 96376; 99285; A9270; G0378; G0379; J0696; J1170; J1650; J2270; J2405; J2765; J3480; J7030; J7040; Q9967